=== PATIENT | male | born 1995 | race Caucasian/White ===

== ENCOUNTER 2021-11-15 15:29 | Outpatient (CLI) | payer OTHER ==
[2021-11-15 16:31] VITALS: BP 117/84
--- NOTE | 2021-11-15 16:31 | SLEEP CARE CONSULTATION ---
Information from patient questionnaire entered by Fernanda Hunter MA. I have reviewed and concur with the information entered by Fernanda Hunter MA. This document represents the service I personally performed and the decisions made by , Wanda Alejandra ARNP. History of Present Illness Service Date and Time: 11/15/2021 1529 Reason for Visit: New patient (ONSET 04/22/2016, NO PRIORS, ) Chief Complaint: reports: Unrefreshed sleep, Snoring, Excessive daytime sleep iness, Fatigue Date of Onset: 5 PLUS YEARS Usual bedtime: 11 -12 PM Time it takes to fall asleep: 15 - 30 MINUTES Snores at night: Yes Observed to quit breathing while asleep: No Sleeps alone due to snoring: Yes Number of times waking at night: 1 -3 Reasons for waking at night: reports: Snoring, Other (unknown reasons). denies: Choking, Gasping for air Toss, Turn, or Twitch while sleeping: Yes Recalls having dreams: Yes Usually gets out of bed at: [id number]; weekends 0900 Feels refreshed in the morning: No Morning headache: No Sleepy or fatigued during the day: Yes Ever fallen asleep while driving: No Takes day naps: No Prior sleep studies: No Additional HPI information: I had the pleasure of seeing ODILIA RUDOLPH today regarding the possibility of him having a sleep disorder. His current complaints are Unrefreshed sleep, Snoring, Excessive daytime sleepiness and Fatigue. He has general drowsiness that extends throughout the day. He will toss and turn in his sleep. His has told him he snores loudly. He has asked his and she does not remember seeing any pauses in breathing. She can still sleep in same room. He does not wake up feeling rested and is tired through the day. He does not take naps. He has a history of ADHD/inattentive and has problems with concentration. He has been on Adderall in the past but he has not taken it for about 2 weeks and is going to talk to his provider about stopping it altogether. He also has a history of depression and taking Wellbutrin. - Parasomnia Symptoms Ever been unable to move upon waking from sleep: No Walks in sleep: No Talks in sleep: Yes Ever acted out dreams in sleep: No Ever felt weak in the knees when startled or emotional: Yes (has not fallen to ground) Bothered by creepy, crawly, restless sensations in legs: No Problems with memory or concentration: Yes (both; has ADHD/inattentive) Subjective Initial [place] Sleepiness Scale score: 11 (11/15/2021) Past Medical History Past Medical History: reports: Anxiety, Depression, Attention deficit Social History The patient's occupation is a [employer]. Patient is and lives in . Have you smoked in the past 12 months: No Alcohol use: Yes Alcohol amount and frequency: 3-4 X MONTHLY Caffeine use: Yes Caffeine amount and frequency: 1-2 X WEEKLY Family History Family history of sleep disordered breathing: Yes Family Hx Sleep Apnea: Mother: Snoring, Sleep apnea - Untreated Allergies and Home Medications Known drug allergies: No Drug allergies reviewed: Yes (NKDA) Home medication list reviewed: Yes Allergy and home medication list: Medications: Wellbutrin 300 mg Adderall 20 mg (has not taken for 2 weeks) Vitamin D Multivitamin Review of Systems Weight gain over past 5 years: 65 lbs Respiratory: reports: shortness of breath Neurological: reports: headaches. denies: head trauma Psychiatric: reports: Attention Deficit Hyperactivity, anxiety, depression Ear/Nose/Throat: reports: wisdom teeth removed. denies: dry mouth/throat, ton sillectomy Endocrine: reports: sluggishness Immunologic: denies: allergies to food or environment Physical Exam Vital signs obtained and entered by: Kathryn HUNTER CMA AAKS Blood Pressure: 117/84 (RESP 18, PULSE 90, RIGHT) Cuff size: wrist Heart Rate: 85 O2 Saturation: 98 (PAPER MASK) Height: 5 ft 10 in Weight: 240 lb (UNIFORM AND BOOTS) Body Mass Index: 34.4 BMI Classification: Obese Neck circumference: 16 (INCHES) Mouth and throat: narrow oropharynx Soft palate: long Hard palate: normal Uvula: normal Uvula visualization: 25% Mallampati Class III Tongue: enlarged in size with teeth romero on lateral edges Tonsils: small Neck: normal w/o lymphadenopathy or thyromegaly Heart: regular rate and rhythm Lungs: clear bilaterally Impression and Plan 1. Suspected Obstructive Sleep Apnea-Hypopnea Syndrome, as suggested by a history of loud and irregular snoring, unrefreshed sleep, cognitive impairment, and excessive daytime sleepiness. Narrow oropharynx and obesity are common predisposing factors for obstructive sleep apnea-hypopnea syndrome. I recommend proceeding to polysomnography to confirm the diagnosis and to assess severity. I informed the patient of what the sleep studies involve and after some discussion, obtained agreement to proceed. The pathophysiology of obstructive sleep apnea-hypopnea syndrome was discussed with the patient and health risks of cardiovascular and cerebrovascular disease if not treated. Risks of drowsy driving discussed in detail and patient advised to avoid long distance driving and to car clerk pullman at the first sign of drowsiness. Patient agreed to plan. * Schedule polysomnography * Avoid long distance driving or driving when feeling sleepy. * Avoid alcohol, sedative and muscle relaxant around bedtime. * Attempt to lose weight. * Review instructions provided by trained office staff on how to prepare for the sleep study. * Return for follow-up after sleep study completed. Counseling Topics: Weight loss health impact Visit Type: In Office Time Spent with Patient (minutes): 30 Provider Statement: I spent 100% of the Face to Face Visit with the patient with greater than 50% spent counseling the patient and coordination of care.
== END 2021-11-15 15:30 | disposition home or self-care (01) ==
LOC: SC 15:29
PROVIDERS: ATTEND Nurse Practitioner Family
DX: R06.83 Snoring (principal); G47.8 Other sleep disorders; G47.10 Hypersomnia, unspecified; R53.83 Other fatigue; F32.A Depression, unspecified; E66.9 Obesity, unspecified; Z68.34 Body mass index [BMI] 34.0-34.9, adult
CPT/HCPCS: 99203; 99212

== ENCOUNTER 2021-12-20 09:22 | Outpatient (CLI) | payer OTHER ==
[2021-12-20 10:04] VITALS: BP 120/76
--- NOTE | 2021-12-20 10:04 | SLEEP CARE CONSULTATION ---
Information from patient questionnaire entered by Fernanda Monreal MA. I have reviewed and concur with the information entered by Fernanda Monreal MA. This document represents the service I personally performed and the decisions made by , Wanda Alejandra ARNP. History of Present Illness Service Date and Time: 12/20/2021 0922 Initial [place] Sleepiness Scale score: 11 (11/15/2021) Current [place] Sleepiness Scale score: 12 (12/20/2021) Additional HPI information: ODILIA RUDOLPH returns for follow up and results of the recently performed home sleep study. I explained the pathophysiology behind obstructive sleep apnea. We then spent quite a bit of time discussing different treatment options. For mild obstructive sleep apnea, surgery and oral appliance are alternatives to nasal CPAP therapy but in moderate or severe cases, nasal CPAP is the most effective and reliable treatment. I reviewed the impact of weight changes on sleep apnea and strongly recommended losing weight. After some discussion, the patient opted to go with the nasal CPAP therapy. Nasal autoCPAP set at 4-15 cmH20 will be ordered with rationale explained. A manual titration study will be ordered if unable to find optimal pressure with office adjustments. I explained how CPAP machine works and what to expect when using the machine. Using CPAP every night in order to get used to it was emphasized. Patient advised to put CPAP mask on before getting into bed so as not to fall asleep without CPAP. To assist acclimation to CPAP use, it could also be used for a short time during day while reading or watching TV. The patient was instructed to call the CPAP supplier to discuss any mechanical problem that may occur. If the mask given is uncomfortable or is difficult to keep on through the night even with adjustment, contact the CPAP supplier as many will replace with another mask style if notified before 30 days. If snoring or perceives is not getting enough air or too much air from the machine, notify this office. Patient counseled not drink alcohol less than 4 hours before bedtime as it can increase snoring and apnea. Patient was cautioned about risks of drowsy driving until sleepiness symptoms resolve. Patient denies drowsy driving. Sleep Study - Results Type of Sleep Study: Home sleep study (F/U HST, 12/05/2021 [facility] [place] Prior sleep studies: No Polysomnography/Home Sleep Study results: Physician Impression: The quality of the study is good. The length of the study is adequate (> 240 minutes). Please also see the tabulated and graphic data. 1. Obstructive Sleep Apnea-Hypopnea (ICD-10 G47.33), mild, with an AHI of 11.3/hr and imani SaO2 of 86%. During the study, the patient had 45 apneas (45 obstructive, 0 central, 0 mixed) and 21 hypopneas. The longest episode lasted 70.0 seconds. The patient did not sleep supine during this study. 2. Hypoxemia (ICD-10 R09.02), minimal, with the lowest oxygen saturation of 86 % and 0.8 minutes with SaO2 under 90%. Baseline oxygen saturation was normal (Average oxygen saturation was 95%). Allergies and Home Medications Known drug allergies: No (NKA) Drug allergies reviewed: Yes Home medication list reviewed: Yes (no changes) Allergy and home medication list: NKA VERIFIED BY JOSE L HENNESSY 12/20/2021 0940 Review of Systems Review of systems same as previous: Yes (no changes) Physical Exam Vital signs obtained and entered by: JOSE L HENNESSY Blood Pressure: 120/76 (R20, P94, RIGHT) Cuff size: wrist Heart Rate: 94 O2 Saturation: 97 (PAPER MASK) Height: 5 ft 10 in Weight: 245 lb (CLOTHES) Body Mass Index: 35.2 BMI Classification: Obese Impression and Plan 1. Obstructive Sleep Apnea-Hypopnea Syndrome, mild, with lowest oxygen saturation of 86%. Obviously this is the cause of the patients symptoms of unrefreshed sleep, and excessive daytime sleepiness. Positive pressure therapy could benefit anxiety, depression and attention deficit. As mentioned above, the patient will be started on nasal autoCPAP therapy with pressure set at 4-15 cmH2 O. Compliance guidelines also reviewed. A copy of compliance guidelines will be given for reference at check out. Patient did not sleep supine during the study. I advised him to sleep with head elevated to help reduce apneas until he gets the CPAP. He is to call once he has the CPAP to set up his follow-up appointment. * Nasal auto CPAP therapy, pressure at 4-15 cm H2O. * Attempt to lose weight. * Avoid alcohol consumption near bedtime. * Avoid supine sleep until using CPAP. * The patient is again cautioned about driving until sleepiness completely resolves. * Return one month after CPAP obtained. I will assess response to therapy and compliance at that time. Counseling Topics: Weight loss health impact Visit Type: In Office Time Spent with Patient (minutes): 21 Provider Statement: I spent 100% of the Face to Face Visit with the patient with greater than 50% spent counseling the patient and coordination of care.
== END 2021-12-20 09:23 | disposition home or self-care (01) ==
LOC: SC 09:22
PROVIDERS: ATTEND Nurse Practitioner Family
DX: G47.33 Obstructive sleep apnea (adult) (pediatric) (principal); E66.9 Obesity, unspecified; Z68.35 Body mass index [BMI] 35.0-35.9, adult
CPT/HCPCS: 99212; 99213